=== PATIENT | female | born 1995 | race Caucasian/White ===

== ENCOUNTER 2016-08-01 10:17 | Emergency (ER) | payer OTHER, MEDICAID ==
[2016-08-01 11:41] VITALS: BP 130/81
== END 2016-08-01 11:41 | disposition home or self-care (01) ==
LOC: ED 10:17
DX: S83.91XA Sprain of unspecified site of right knee, initial encounter (principal); X58.XXXA Exposure to other specified factors, initial encounter; Y93.89 Activity, other specified; Y99.8 Other external cause status; Y92.89 Other specified places as the place of occurrence of the external cause